=== PATIENT | male | born 1940 | race Two or more races ===

== ENCOUNTER 2021-07-15 23:12 | Inpatient (IN) | payer MEDICARE ==
[~2021-07-15] VITALS: Ht 165.1 cm; Wt 61.2 kg
[2021-07-16] MEDS ORDERED: MAGNESIUM HYDROXIDE 30 ML UDC PO PRN
[2021-07-16] MEDS ORDERED: BLOOD SUGAR DIAGNOSTIC 1 EACH STRIP IN ONE
[2021-07-16] MEDS ORDERED: MAG HYDROX/AL HYDROX/SIMETH 30 ML UDC PO PRN
--- NOTE | 2021-07-16 00:05 | NUR ---
GPS RN NOTE PATIENT'S BS IS 79 MG/DL UPON ADMISSION, ORANGE JUICE AND PUDDING OFFERED, TOLERATED WELL.
--- NOTE | 2021-07-16 00:20 | NUR ---
GPS RN NOTE PATIENT'S SON SURYA MCCORD CALLED AND INFORMED HIM ABOUT PATIENT'S ADMISSION AT [facility], [facility].
[2021-07-16] MEDS: LORAZEPAM 0.5 MG TABLET PO PRN ×2 (00:26→06:27)
--- NOTE | 2021-07-16 00:28 | NUR ---
GPS RN NOTE: ANXIETY/AGITATION PATIENT IS ANXIOUS, RESTLESS, AGITATED. UNABLE TO BE REDIRECTED. PRN ATIVAN 0.5 MG 1 TAB PO ADMINISTERED.
--- NOTE | 2021-07-16 00:30 | NUR ---
GPS RN NOTE DR. BATRES NOTIFIED ABOUT PATIENT'S ADMISSION AT GPS UNIT.
[2021-07-16] MEDS: ACETAMINOPHEN 325 MG TABLET PO PRN (00:46)
--- NOTE | 2021-07-16 00:46 | NUR ---
GPS RN NOTE: PAIN PATIENT C/O BACK PAIN BUT UNABLE TO SCALE DUE TO CONFUSION. PRN TYLENOL 650 MG PO ADMINISTERED. WILL CONTINUE TO MONITOR.
--- NOTE | 2021-07-16 01:00 | NUR ---
GPS FLAT SORTER PROCESSOR NOTE: RECEIVED 80 Y/O MALE PATIENT FROM [facility] / [facility]. PATIENT ARRIVED ON THIS UNIT AT 2350 VIA GURNEY WITH 2 EMT'S. PATIENT ADMITTED ON A 5150 HOLD FOR DTO, DTS AND GD. PER 5150 HOLD, PATIENT WAS DISORIENTED AND UNABLE TO ANSWER QUESTIONS. PATIENT'S NURSE MICKY FROM [facility] REPORTS THAT PATIENT WAS VERY AGITATED, HE BROKE A WINDOW WITH A CHAIR, NOT ABLE TO BE REDIRECTED. HE WAS ATTACKING THE STAFF AND THE OTHER RESIDENTS. PATIENT DX WITH DEMENTIA WITH PSYCHOSIS PRESCRIBED SEROQUEL, ATIVAN AND GABAPENTIN. UPON FACE TO FACE ASSESSMENT, PATIENT IS A & O X 1, CONFUSED, DISORIENTED, DISORGANIZED, EASILY AGITATED/AGGRESSIVE, ANXIOUS, RESTLESS, PARANOID, TALKING TO HIMSELF, NON REDIRECTABLE DUE TO CONFUSION. AMBULATORY, UNSTEADY GAIT, FALL RISK. PATIENT'S JUDGEMENT IS IMPAIRED AND HAS POOR IMPULSE CONTROL AND INSIGHT. NO S/S OF APPARENT DISTRESS NOTED. PATIENT BREATHING IS UNLABORED WITH EQUAL RISE AND FALL OF THE CHEST. ON ROOM AIR. PATIENT REFUSED TO SIGNS ANY PAPER WORK DUE TO HIS CONFUSION. PATIENT ADVISED OF HER HOLD AND PATIENT RIGHTS BOOKLET GIVEN. PATIENT IS UNDER THE PSYCHIATRIC CARE OF DR. BATRES AND THE MEDICAL CARE OF JOHN MCCLAIN. PATIENT BELONGINGS WERE INVENTORIED AND CHECKED FOR CONTRABAND. ALL CONTRABAND REMOVED AND STORED IN PATIENT HALLWAY LOCKER. PATIENT ADVANCED DIRECTIVES PREFERENCE, IMMUNIZATIONS QUESTIONER, NECESSARY PAPERWORK COMPLETED. PATIENT IS UNABLE TO PROVIDE ANY RELEVANT HISTORY DUE TO CURRENT MENTAL STATUS. SKIN ASSESSED AND PICTURES TAKEN. MRSA COLLECTED. PATIENT EDUCATED ON THE USE OF THE CALL LIGHT. PATIENT BED SIDE RAILS ARE UP X 2 FOR SAFETY. PATIENT'S BED IN LOW LOCKED POSITION. BED ALARM ON. I WILL CONTINUE TO MONITOR THIS PATIENT Q 15 MIN WITH THE HELP OF STAFF TO MAINTAIN SAFETY.
[2021-07-16] MEDS: TEMAZEPAM 7.5 MG CAPSULE PO PRN ×2 (01:53→21:26)
--- NOTE | 2021-07-16 01:54 | NUR ---
GPS RN NOTE: INSOMNIA PATIENT IS UNABLE TO SLEEP, ANXIOUS, RESTLESS, EASILY AGITATED, PRN RESTORIL 7.5 MG 1 CAP PO ADMINISTERED. WILL CONTINUE TO MONITOR CLOSELY FOR ANY CHANGE OF CONDITION.
[2021-07-16] MEDS ORDERED: GABA-532 PO (03:01)
[2021-07-16] MEDS ORDERED: ASPI-1169 PO (03:01)
[2021-07-16] MEDS ORDERED: ATOR20TA PO (03:01)
[2021-07-16] MEDS ORDERED: QUET50TA PO (03:01)
[2021-07-16] MEDS ORDERED: QUET25TA PO (03:01)
[2021-07-16] MEDS ORDERED: CYAN10006 PO (03:01)
[2021-07-16] MEDS ORDERED: LORA-259 PO (03:01)
[2021-07-16] MEDS ORDERED: CHOL400T11 PO (03:04)
--- NOTE | 2021-07-16 06:28 | NUR ---
GPS RN NOTE: ANXIETY/AGITATION PATIENT IS ANXIOUS, RESTLESS, AGITATED, STRIKING AT STAFF. UNABLE TO BE REDIRECTED. PRN ATIVAN 0.5 MG 1 TAB PO ADMINISTERED. WILL CONTINUE TO MONITOR.
[2021-07-16 06:34] LABS: BASOPHILS # (AUTO) 0.1 K/uL (0.0-0.2); BASOPHILS % (AUTO) 0.4 % (0.0-2.0); EOSINOPHILS % (AUTO) 0.3 % (0.0-6.0); HEMATOCRIT 41 % (39-51); HEMOGLOBIN 13.7 g/dL (13.5-17.5); LYMPHOCYTES # (AUTO) 0.9 K/uL (0.8-4.8); LYMPHOCYTES % (AUTO) 6.6 % (20.0-44.0); MEAN CORPUSCULAR HGB CONC 34 g/dl (31.0-36.0); MEAN CORPUSCULAR VOLUME 96 fL (80-96); MONOCYTES # (AUTO) 0.9 K/uL (0.1-1.30); MONOCYTES % (AUTO) 6.6 % (2.0-12.0); NEUTROPHILS % (AUTO) 86.1 % (43.0-81.0); PLATELET COUNT (AUTO) 231 K/uL (150-450); RED BLOOD CELL COUNT(AUTO) 4.26 MIL/uL (4.5-6.0); WHITE BLOOD COUNT (AUTO) 13.9 K/uL (4.3-11.0)
[2021-07-16 07:40] LABS: ALBUMIN 3.9 g/dL (3.4-5.0); BILIRUBIN,TOTAL 0.9 mg/dL (0.2-1.0); CALCIUM, SERUM 9.1 mg/dL (8.5-10.1); CREATININE 0.9 mg/dL (0.6-1.3); POTASSIUM 3.7 mmol/L (3.5-5.1)
[2021-07-16] MEDS ORDERED: CYAN100020 SL (09:15)
[2021-07-16] MEDS ORDERED: ERGO500040 PO (09:15)
[2021-07-16 09:39] VITALS: BP 150/73
[2021-07-16] MEDS: ASPIRIN 81 MG TAB.CHEW PO SCH (13:41)
[2021-07-16] MEDS: risperiDONE-M 0.5 MG TAB.RAPDIS PO SCH ×2 (13:41→17:14)
[2021-07-16] MEDS: GABAPENTIN 100 MG CAPSULE PO SCH ×2 (13:42→17:14)
[2021-07-16] MEDS: CYANOCOBALAMIN 500 MCG TABLET PO SCH (13:42)
--- NOTE | 2021-07-16 15:00 | NUR ---
FLORENCIO Family Contact: SW spoke with patient's son Rodrigo ([phone]) and discussed treatment and discharge plan.
--- NOTE | 2021-07-16 15:00 | NUR ---
FLORENCIO Initial Discharge Plan: Patient currently resides at [facility] located at [address] [place] [address]; ([phone]). Patient's son Rodrigo ([phone]) stated that he would want pt back to [facility]. FLORENCIO will work with the MD, treatment team, and family to help coordinate appropriate discharge.
--- NOTE | 2021-07-16 15:00 | NUR ---
SW Admit Note: Patient currently resides at [facility] located at [address] [place] [address], [place] [address]; ([phone]). Patient's son Rodrigo ([phone]) stated that he would want pt back to [facility]. FLORENCIO spoke with [facility] ([phone]) and spoke with Adriana the admin who stated that they cannot take pt back because of his history of being aggressive and not being able to provide the appropriate care. FLORENCIO will work with the MD, treatment team, and family to help coordinate appropriate discharge.
--- NOTE | 2021-07-16 15:13 | NUR ---
FLORENCIO Family Contact: FLORENCIO spoke with patient's son Rodrigo ([phone]) and notified that he will contact [facility] and discuss.
[2021-07-16 16:00] VITALS: BP 146/59
[2021-07-16 20:00] VITALS: BP 104/67
[2021-07-16] MEDS: ATORVASTATIN 10 MG TABLET PO SCH (21:26)
[2021-07-17] MEDS: LORAZEPAM 0.5 MG TABLET PO PRN ×2 (03:03→11:27)
[2021-07-17 08:00] VITALS: BP 124/76
--- NOTE | 2021-07-17 08:15 | NUR ---
WOUND CARE CONSULT: REVIEWED CHART, NURSING DOCUMENTATION AND PHOTO WHICH INDICATES SACRAL DEEP TISSUE INJURY, PRESENT ON ADMISSION. RECOMMENDATIONS MADE FOR SKIN PROTECTION AND WOUND CARE. DISCUSSED WITH NURSING STAFF. MD IN AGREEMENT WITH PLAN OF CARE.
[2021-07-17] MEDS: risperiDONE-M 0.5 MG TAB.RAPDIS PO SCH ×5 (09:00→21:38)
[2021-07-17] MEDS: GABAPENTIN 100 MG CAPSULE PO SCH ×3 (09:00→17:01)
[2021-07-17] MEDS: CYANOCOBALAMIN 500 MCG TABLET PO SCH (10:41)
[2021-07-17] MEDS: ASPIRIN 81 MG TAB.CHEW PO SCH (10:41)
--- NOTE | 2021-07-17 11:00 | NUR ---
RN NOTES, PATIENT TRYING TO GET UP FROM BED, AGAIN SEVERAL TIMES, SIT PATIENT ON RAPHAEL CHAIR AGAIN CONTINUOUS MONITORING PROVIDED, SAFETY MAINTAINED, UNABLE TO FOLLOW DIRECTIONS, UNCOOPERATIVE, AGGRESSIVE BEHAVIOR IF WE PUT HIM BACK TO BED, WILL MONITORING CLOSELY.
--- NOTE | 2021-07-17 11:40 | NUR ---
SITTING UP IN RM.ON ISOLATION FOR COVID.YELLING.GIVEN ATIVAN 0.5MG FOR BEHAVIOR.
[2021-07-17] MEDS: ENSURE ENLIVE CHOC 237 ML CAN PO SCH ×2 (11:44→17:01)
[2021-07-17 14:08] LABS: ALBUMIN 3.9 g/dL (3.4-5.0); BILIRUBIN,TOTAL 1.6 mg/dL (0.2-1.0); CALCIUM, SERUM 9.2 mg/dL (8.5-10.1); CREATININE 0.9 mg/dL (0.6-1.3); POTASSIUM 3.7 mmol/L (3.5-5.1); TOTAL PROTEIN, SERUM 6.9 g/dL (6.4-8.2)
[2021-07-17 14:28] LABS: BASOPHILS % (AUTO) 0.3 % (0.0-2.0); EOSINOPHILS % (AUTO) 0.6 % (0.0-6.0); HEMATOCRIT 42 % (39-51); HEMOGLOBIN 13.9 g/dL (13.5-17.5); LYMPHOCYTES # (AUTO) 1.1 K/uL (0.8-4.8); LYMPHOCYTES % (AUTO) 13.1 % (20.0-44.0); MEAN CORPUSCULAR HGB CONC 34 g/dl (31.0-36.0); MEAN CORPUSCULAR VOLUME 96 fL (80-96); MONOCYTES # (AUTO) 0.8 K/uL (0.1-1.30); MONOCYTES % (AUTO) 8.9 % (2.0-12.0); NEUTROPHILS # (AUTO) 6.5 K/uL (1.8-8.9); NEUTROPHILS % (AUTO) 77.1 % (43.0-81.0); PLATELET COUNT (AUTO) 232 K/uL (150-450); RED BLOOD CELL COUNT(AUTO) 4.32 MIL/uL (4.5-6.0); WHITE BLOOD COUNT (AUTO) 8.5 K/uL (4.3-11.0)
--- NOTE | 2021-07-17 14:28 | NUR ---
very sleepy at this time,afternoon meds held.
[2021-07-17 16:00] VITALS: BP 134/91
--- NOTE | 2021-07-17 19:40 | NUR ---
PATIENT IN BED AWAKE, ALERT AND ORIENTED TO SELF, AT ROOM AIR, NO SOB/ACUTE DISTRESS NOTED, NO C/O PAIN OR DISCOMFORT, ON ISOLATION FOR COVID 19, ALL ISOLATION PRECAUTIONS IN PLACE, SAFETY PRECAUTIONS MAINTAINED AT ALL TIME, KEPT PATIENT DRY AND CLEAN, WILL CONTINUE TO MONITOR Q15MIN ROUNDS FOR SAFETY AND BEHAVIOR, NO DISRUPTIVE BEHAVIOR NOTED AT TIS TIME
[2021-07-17 20:00] VITALS: BP 104/62
--- NOTE | 2021-07-17 20:00 | NUR ---
PATIENT IN BED AWAKE, ALERT AND ORIENTED X1-2 , AT ROOM AIR, NO SOB/ACUTE DISTRESS NOTED, NO C/O PAIN OR DISCOMFORT, ON ISOLATION FOR COVID 19, ALL ISOLATION PRECAUTIONS IN PLACE, PT REPEATEDLY GETTING UP FROM BED, REMINDED HIM SEVERAL TIMES TO STAY IN BED, PATIENT REFUSED AND UNCOOPERATIVE, EASILY AGITATED, UNABLE TO FOLLOW DIRECTIONS, PLACED HIM IN RAPHAEL CHAIR, PATIENT UNCOOPERATIVE AT THIS TIME, BED BATH GIVEN TO PT, PERIOCARE PROVIDED, AND NOTICED DISCOLORATIONS ON BILATERAL LOWER ABDOMEN, AND REDNESS IN PERINEAL AREA, TOOK PICTURES AND PLACED IN CHART, ALL SAFETY PRECAUTIONS MAINTAINED AT ALL TIME, KEPT PATIENT DRY AND CLEAN, SNACK AND HYDRATION PROVIDED, WILL CONTINUE TO MONITOR Q15MIN ROUNDS FOR SAFETY AND BEHAVIOR,
[2021-07-17] MEDS: GABAPENTIN 300 MG CAPSULE PO SCH (21:39)
[2021-07-17] MEDS: ATORVASTATIN 10 MG TABLET PO SCH (21:39)
--- NOTE | 2021-07-17 22:00 | NUR ---
PLACED PATIENT ON BED, NOTICED HIM SLEEPY, CLEANED PATIENT, PROVIDED YEIMI CARE AND CHANGED DIAPER, KEPT HIM COMFORTABLY, WILL CONTINUE TO MONITOR CLOSELY.
--- NOTE | 2021-07-17 22:30 | NUR ---
RN NOTES, PATIENT TRYING TO GET UP FROM BED, REMINDED HIM TO STAY IN BED, UNABLE TO FOLLOW DIRECTIONS, WILL CONTINUE TO MONITOR CLOSELY.
[2021-07-18] MEDS: TEMAZEPAM 7.5 MG CAPSULE PO PRN (00:27)
--- NOTE | 2021-07-18 01:00 | NUR ---
MARY NOTES, MEDICATION INEFFECTIVE TO SLEEP, PATIENT TRYING TO GET UP FROM BED, UNABLE TO FOLLOW DIRECTIONS, DESPITE SEVERAL REMINDERS, PT CONT TRYING TO GET UP FROM BED, SIT PT IN RAPHAEL CHAIR CONT MONITORING PROVIDED.
--- NOTE | 2021-07-18 01:40 | NUR ---
PATIENT NOTED SLEEPY, PLACED HIM BACK TO BED, WILL CONTINUE TO MONITOR CLOSELY.
--- NOTE | 2021-07-18 06:00 | NUR ---
RN NOTES, PATIENT ATTEMPTING TO GET UP FROM BED AGAIN, PLACED PATIENT ON HANK-CHAIR, NO SOB/ACUTE DISTRESS NOTED, WITH FEW HOURS SLEEPING, CONT ON ISOLATION FOR COVID 19, ALL SAFETY PRECAUTIONS IN PLACED, WILL ENDORSE CONTINUATION OF CARE TO ONCOMING NURSE.
[2021-07-18 06:46] LABS: BASOPHILS % (AUTO) 0.4 % (0.0-2.0); EOSINOPHILS % (AUTO) 0.6 % (0.0-6.0); HEMATOCRIT 43 % (39-51); HEMOGLOBIN 14.3 g/dL (13.5-17.5); LYMPHOCYTES # (AUTO) 1.3 K/uL (0.8-4.8); LYMPHOCYTES % (AUTO) 14.8 % (20.0-44.0); MEAN CORPUSCULAR HGB CONC 34 g/dl (31.0-36.0); MEAN CORPUSCULAR VOLUME 96 fL (80-96); MONOCYTES # (AUTO) 0.7 K/uL (0.1-1.30); MONOCYTES % (AUTO) 8.5 % (2.0-12.0); NEUTROPHILS # (AUTO) 6.5 K/uL (1.8-8.9); NEUTROPHILS % (AUTO) 75.7 % (43.0-81.0); PLATELET COUNT (AUTO) 222 K/uL (150-450); RED BLOOD CELL COUNT(AUTO) 4.42 MIL/uL (4.5-6.0); WHITE BLOOD COUNT (AUTO) 8.6 K/uL (4.3-11.0)
[2021-07-18 08:00] VITALS: BP 148/74
[2021-07-18] MEDS: GABAPENTIN 100 MG CAPSULE PO SCH ×3 (08:03→18:18)
[2021-07-18] MEDS: risperiDONE-M 0.5 MG TAB.RAPDIS PO SCH ×4 (08:03→21:38)
[2021-07-18] MEDS: CYANOCOBALAMIN 500 MCG TABLET PO SCH (08:04)
[2021-07-18] MEDS: ASPIRIN 81 MG TAB.CHEW PO SCH (08:04)
[2021-07-18] MEDS: ENSURE ENLIVE CHOC 237 ML CAN PO SCH ×2 (08:16→18:14)
--- NOTE | 2021-07-18 10:05 | NUR ---
GIVEN ATIVAN VERY AGITATED AT THIS TIME.
--- NOTE | 2021-07-18 10:15 | NUR ---
WOUND CARE CONSULT: REVIEWED CHART, NURSING DOCUMENTATION AND PHOTOS WHICH INDICATES DISCOLORED AREAS TO ABDOMEN. PER NURSING DOCUMENTATION, PT WAS PREVIOUSLY AGITATED AND UNCOOPERATIVE. NURSING STAFF TO MONITOR SKIN WHICH IS INTACT WITH DEEP TISSUE INJURY (INTACT) NOTED IN ADMISSION PHOTO. ALL SKIN PROTECTION MEASURES IN PLACE AND DISCUSSED WITH NURSING STAFF. MD IN AGREEMENT WITH PLAN OF CARE.
[2021-07-18] MEDS: LORAZEPAM 0.5 MG TABLET PO PRN (11:10)
--- NOTE | 2021-07-18 11:12 | NUR ---
SW Family Contact: SW spoke with patient's son Kike ([phone]) who stated that family has been in contact with [facility] and they stated they will evaluate pt upon dc if they will accept him back or not. He stated that as a back up he is open for this SW to find a nursing facility.
--- NOTE | 2021-07-18 12:33 | NUR ---
SNF Referral: FLORENCIO sent clinicals to Winsome herrera from [facility] ([phone]) for placement option. SW sent H & P, progress notes, and medication list.
--- NOTE | 2021-07-18 13:43 | NUR ---
SNF Contact: SW spoke with Winsome herrera from [facility] ([phone]) who stated pt is accepted.
[2021-07-18] MEDS: ERGOCALCIFEROL (VITAMIN D 2) 50,000 UNIT CAPSULE PO SCH (14:48)
[2021-07-18 16:00] VITALS: BP 119/67
--- NOTE | 2021-07-18 18:00 | NUR ---
med compliant,less agitated than yesterday.
[2021-07-18 20:00] VITALS: BP 155/66
[2021-07-18] MEDS: ATORVASTATIN 10 MG TABLET PO SCH (21:37)
[2021-07-18] MEDS: GABAPENTIN 300 MG CAPSULE PO SCH (21:37)
[2021-07-19] MEDS: ACETAMINOPHEN 325 MG TABLET PO PRN (02:59)
[2021-07-19 08:00] VITALS: BP 113/69
[2021-07-19] MEDS: ASPIRIN 81 MG TAB.CHEW PO SCH (10:43)
[2021-07-19] MEDS: GABAPENTIN 100 MG CAPSULE PO SCH ×2 (10:44→18:18)
[2021-07-19] MEDS: risperiDONE-M 0.5 MG TAB.RAPDIS PO SCH ×4 (10:44→21:11)
[2021-07-19] MEDS: CYANOCOBALAMIN 500 MCG TABLET PO SCH (10:44)
[2021-07-19] MEDS: ENSURE ENLIVE CHOC 237 ML CAN PO SCH ×2 (10:45→18:19)
[2021-07-19] MEDS: LORAZEPAM 0.5 MG TABLET PO PRN (15:57)
--- NOTE | 2021-07-19 15:58 | NUR ---
RN NOTES ADMINISTERED ATIVAN 0.6 MG PO PRN FOR ANXIETY,PARANOIA. PATIENT UNDRESS SELF, SITTING IN THE HANK CHAIR. WILL FOLLOW UP, V/S-WNL. WILL FOLLOW UP.
[2021-07-19 16:00] VITALS: BP 139/76
[2021-07-19] MEDS: GABAPENTIN 300 MG CAPSULE PO SCH ×2 (18:17→21:27)
[2021-07-19 20:00] VITALS: BP 144/76
[2021-07-19] MEDS: TEMAZEPAM 7.5 MG CAPSULE PO PRN (21:11)
[2021-07-19] MEDS: ATORVASTATIN 10 MG TABLET PO SCH (21:11)
[2021-07-20 07:37] LABS: BASOPHILS % (AUTO) 0.4 % (0.0-2.0); EOSINOPHILS % (AUTO) 1.4 % (0.0-6.0); HEMATOCRIT 44 % (39-51); HEMOGLOBIN 14.6 g/dL (13.5-17.5); LYMPHOCYTES # (AUTO) 1.2 K/uL (0.8-4.8); LYMPHOCYTES % (AUTO) 12.8 % (20.0-44.0); MEAN CORPUSCULAR HGB CONC 34 g/dl (31.0-36.0); MEAN CORPUSCULAR VOLUME 96 fL (80-96); MONOCYTES # (AUTO) 0.7 K/uL (0.1-1.30); MONOCYTES % (AUTO) 7.9 % (2.0-12.0); NEUTROPHILS # (AUTO) 7.2 K/uL (1.8-8.9); NEUTROPHILS % (AUTO) 77.5 % (43.0-81.0); RED BLOOD CELL COUNT(AUTO) 4.54 MIL/uL (4.5-6.0); WHITE BLOOD COUNT (AUTO) 9.3 K/uL (4.3-11.0)
[2021-07-20 08:00] VITALS: BP 137/71
[2021-07-20] MEDS: ENSURE ENLIVE CHOC 237 ML CAN PO SCH ×2 (08:19→17:53)
[2021-07-20] MEDS: GABAPENTIN 100 MG CAPSULE PO SCH ×3 (08:20→17:54)
[2021-07-20] MEDS: ASPIRIN 81 MG TAB.CHEW PO SCH (08:20)
[2021-07-20] MEDS: risperiDONE-M 0.5 MG TAB.RAPDIS PO SCH ×4 (08:20→21:53)
[2021-07-20] MEDS: CYANOCOBALAMIN 500 MCG TABLET PO SCH (08:20)
[2021-07-20 09:33] LABS: ALBUMIN 3.9 g/dL (3.4-5.0); BILIRUBIN,TOTAL 1.3 mg/dL (0.2-1.0); CALCIUM, SERUM 9.4 mg/dL (8.5-10.1); CREATININE 0.8 mg/dL (0.6-1.3)
--- NOTE | 2021-07-20 10:38 | NUR ---
PC HEARING: Kike ([phone]) son was notified of pt's 5800 hearing today.
--- NOTE | 2021-07-20 10:53 | NUR ---
Covid 19 is negative at this time and Dr. Henrandez made aware and d/c the isolation.
--- NOTE | 2021-07-20 11:35 | NUR ---
SW Individual Therapy: SW attempted to conduct therapy. Pt was confused and disorganized. Pt unable to have a proper conversation at this time.
--- NOTE | 2021-07-20 13:55 | NUR ---
Court Hearing: Patient's court hearing for 2240 was today and it was upheld for GD and danger to others.
[2021-07-20 14:08] LABS: PLATELET COUNT (AUTO) 184 K/uL (150-450)
[2021-07-20 16:00] VITALS: BP 116/70
--- NOTE | 2021-07-20 19:10 | NUR ---
RN NOTES: UPON ENDORSEMENT HE WAS SITTING ON THE CHAIR, SHOUTING IN BETWEEN AND CALLING EVERYBODY WHO PASS BY,ORIENTED TO UNIT AND STAFF.FALL AND SAFETY PRECAUTION OBSERVED,CONTINUE TO MONITOR FOR ANY BEHAVIORAL CHANGE. -AROUND 1954 HE IS MORE RELAX AND QUITE.
[2021-07-20 20:00] VITALS: BP 115/66
[2021-07-20 20:14] VITALS: BP 115/66
[2021-07-20] MEDS: ATORVASTATIN 10 MG TABLET PO SCH (21:53)
[2021-07-20] MEDS: GABAPENTIN 300 MG CAPSULE PO SCH (21:53)
--- NOTE | 2021-07-20 21:54 | NUR ---
RN NOTES: PATIENT SLEEPING IN BETWEENM HE TOOK ALL HIS ORAL MEDICATION, COOPERATIVE.
[2021-07-20] MEDS: TEMAZEPAM 7.5 MG CAPSULE PO PRN (23:03)
--- NOTE | 2021-07-20 23:04 | NUR ---
RN NOTES: AWAKE AND TRYING TO MAKE SOME NOISE, WHEN RN APPROACH HIM, HE SAID "I WANT YOU TO REMOVE THIS I WANT TO SLEEP", PRN MEDS FOR SLEEP GIVEN.
[2021-07-21] MEDS: TEMAZEPAM 7.5 MG CAPSULE PO PRN ×2 (00:07→22:21)
--- NOTE | 2021-07-21 00:08 | NUR ---
RN NOTES: CLOSE HIS EYES AND TAKING A REST.ON CLOSE WATCH.
--- NOTE | 2021-07-21 00:35 | NUR ---
RN NOTES: -FEW MINUTES NAP ONLY, AWAKE AGAIN, TALKING TO HIMSELF, WHISPERING; UNORGANIZED THOUGHTS, CANNOT BE UNDERSTAND. ON CLOSE WATCH.
--- NOTE | 2021-07-21 03:50 | NUR ---
RN NOTES: YELLING AND SHOUTING THE NAME OF "MARGIE", WHILE TRYING TO REMOVE THE TABLE IN THE EMEKA-CHAIR. Addendum: 07/21/21 at 06 by JEFFERY ARENAS RN ADDED NOTES: -AT 0600 AWAKE MOST OF THE TIME, ASSISTED TO THE BATHROOM TO PEE, SKIN TREATMENT RENDERED, BRIEF CHANGE.
[2021-07-21 08:00] VITALS: BP 113/76
[2021-07-21] MEDS: ENSURE ENLIVE CHOC 237 ML CAN PO SCH ×2 (08:26→16:29)
[2021-07-21] MEDS: ASPIRIN 81 MG TAB.CHEW PO SCH (08:27)
[2021-07-21] MEDS: risperiDONE-M 0.5 MG TAB.RAPDIS PO SCH ×4 (08:27→22:20)
[2021-07-21] MEDS: CYANOCOBALAMIN 500 MCG TABLET PO SCH (08:28)
[2021-07-21] MEDS: GABAPENTIN 100 MG CAPSULE PO SCH ×3 (08:28→16:30)
[2021-07-21 16:00] VITALS: BP 114/70
--- NOTE | 2021-07-21 19:30 | NUR ---
GPS RN NOTE, RECEIVED PATIENT AWAKE AND IN BED, NO S/S OR COMPLAINTS OF PAIN AT THIS TIME. PATIENT IS DISPLAYING NO S/S OF APPARENT DISTRESS AT THIS TIME. PATIENT BREATHING IS UNLABORED WITH EQUAL RISE AND FALL OF THE CHEST. PATIENT IS ALERT AND ORIENTED X 1-2 ON ROOM AIR WITH A SPO2 99%. PATIENT IS COMPLIANT WITH MEDICATIONS, ANXIOUS, POLITE, PARANOID, UNCOOPERATIVE, AND NEEDS REDIRECTION. PATIENT DENIES SUICIDAL AND HOMICIDAL IDEATIONS AT THIS TIME. PATIENT ASSISTED WITH TURNING AND REPOSITIONING Q2HR AND PRN FOR COMFORT AND CIRCULATION. PATIENT HAS NO NEEDS AT THIS TIME. PATIENT EDUCATED ON THE USE OF THE CALL DIANE. PATIENT BED SIDE RAILS UP X 2 FOR SAFETY. PATIENT BED IS LOCKED, LOW, WITH BED ALARM ON. WILL CONTINUE TO MONITOR THIS PATIENT Q15 MINUTES WITH THE HELP OF STAFF TO MAINTAIN SAFETY.
[2021-07-21 19:53] VITALS: BP 111/70
[2021-07-21] MEDS: GABAPENTIN 300 MG CAPSULE PO SCH (22:20)
[2021-07-21] MEDS: ATORVASTATIN 10 MG TABLET PO SCH (22:20)
--- NOTE | 2021-07-21 22:21 | NUR ---
GPS RN NOTE, PATIENT HAS A COMPLAINT OF NOT BEING ABLE TO SLEEP AND IS REQUESTING RESTORIL AT THIS TIME. PATIENT VITAL SIGNS ARE STABLE. GAVE RESTORIL 7.5MG PO HS PRN ORDERED. WILL REASSESS FOR INSOMNIA AND I WILL CONTINUE TO MONITOR THIS PATIENT WITH THE HELP OF STAFF.
[2021-07-22 08:00] VITALS: BP 104/69
[2021-07-22] MEDS: ENSURE ENLIVE CHOC 237 ML CAN PO SCH ×2 (08:35→17:08)
[2021-07-22] MEDS: risperiDONE-M 0.5 MG TAB.RAPDIS PO SCH ×4 (08:37→21:55)
[2021-07-22] MEDS: ASPIRIN 81 MG TAB.CHEW PO SCH (08:37)
[2021-07-22] MEDS: CYANOCOBALAMIN 500 MCG TABLET PO SCH (08:37)
[2021-07-22] MEDS: GABAPENTIN 100 MG CAPSULE PO SCH ×3 (08:38→17:10)
[2021-07-22] MEDS: LORAZEPAM 0.5 MG TABLET PO PRN (14:35)
[2021-07-22 16:00] VITALS: BP 103/64
[2021-07-22 20:00] VITALS: BP 105/42
[2021-07-22] MEDS: ACETAMINOPHEN 325 MG TABLET PO PRN (20:58)
--- NOTE | 2021-07-22 20:58 | NUR ---
GPS RN NOTE: PAIN PATIENT C/O BACK PAIN BUT UNABLE TO SCALE DUE TO CONFUSION. PRN TYLENOL 650 MG PO ADMINISTERED. WILL CONTINUE TO MONITOR.
[2021-07-22] MEDS: GABAPENTIN 300 MG CAPSULE PO SCH (21:36)
[2021-07-22] MEDS: ATORVASTATIN 10 MG TABLET PO SCH (21:36)
[2021-07-22] MEDS: TEMAZEPAM 7.5 MG CAPSULE PO PRN (23:44)
--- NOTE | 2021-07-22 23:45 | NUR ---
GPS RN NOTE: INSOMNIA PATIENT VERBALIZED THAT HE UNABLE TO SLEEP, NOTED TO BE ANXIOUS, RESTLESS, EASILY AGITATED, PRN RESTORIL 7.5 MG 1 CAP PO ADMINISTERED. WILL CONTINUE TO MONITOR CLOSELY FOR ANY CHANGE OF CONDITION.
[2021-07-23 08:00] VITALS: BP 108/57
[2021-07-23] MEDS: ENSURE ENLIVE CHOC 237 ML CAN PO SCH ×2 (08:31→16:08)
[2021-07-23] MEDS: Z GUARD REMEDY 4 OZ OINT TP SCH (09:22)
[2021-07-23] MEDS: CYANOCOBALAMIN 500 MCG TABLET PO SCH (09:25)
[2021-07-23] MEDS: GABAPENTIN 100 MG CAPSULE PO SCH ×3 (09:25→16:34)
[2021-07-23] MEDS: risperiDONE-M 0.5 MG TAB.RAPDIS PO SCH ×4 (09:25→21:40)
[2021-07-23] MEDS: ASPIRIN 81 MG TAB.CHEW PO SCH (09:25)
--- NOTE | 2021-07-23 15:43 | NUR ---
SW Individual Therapy: SW met with patient at bedside for individual therapy regarding positive coping mechanisms. However, pt. is confused, disorganized and unable to engage in a meaningful conversation. SW will continue to asses patient's ability to engage in therapy.
[2021-07-23 16:00] VITALS: BP 135/73
--- NOTE | 2021-07-23 17:30 | NUR ---
Z-GUARD AND MEPILEX PAD APPLIED TO SACRAL AREA
[2021-07-23 19:50] VITALS: BP 121/62
[2021-07-23] MEDS: ACETAMINOPHEN 325 MG TABLET PO PRN (20:15)
--- NOTE | 2021-07-23 20:16 | NUR ---
GPS RN NOTE: PAIN PATIENT C/O RIGHT ARM PAIN PAIN BUT UNABLE TO SCALE DUE TO CONFUSION. PRN TYLENOL 650 MG PO ADMINISTERED. WILL CONTINUE TO MONITOR.
[2021-07-23] MEDS: GABAPENTIN 300 MG CAPSULE PO SCH (21:40)
[2021-07-23] MEDS: ATORVASTATIN 10 MG TABLET PO SCH (21:40)
[2021-07-23] MEDS: TEMAZEPAM 7.5 MG CAPSULE PO PRN (22:52)
--- NOTE | 2021-07-23 22:53 | NUR ---
GPS RN NOTE: INSOMNIA PATIENT IS UNABLE TO SLEEP, NOTED TO BE ANXIOUS, RESTLESS, EASILY AGITATED, PRN RESTORIL 7.5 MG 1 CAP PO ADMINISTERED. WILL CONTINUE TO MONITOR CLOSELY FOR ANY CHANGE OF CONDITION.
[2021-07-24] MEDS: LORAZEPAM 0.5 MG TABLET PO PRN ×2 (05:38→19:59)
--- NOTE | 2021-07-24 05:40 | NUR ---
GPS RN NOTE: ANXIETY PATIENT IS ANXIOUS, RESTLESS. UNABLE TO BE REDIRECTED. PRN ATIVAN 0.5 MG 1 TAB PO ADMINISTERED. WILL CONTINUE TO MONITOR.
[2021-07-24 08:00] VITALS: BP 125/68
[2021-07-24 08:08] LABS: CALCIUM, SERUM 9.1 mg/dL (8.5-10.1); CREATININE 0.9 mg/dL (0.6-1.3); POTASSIUM 3.9 mmol/L (3.5-5.1)
[2021-07-24] MEDS: ASPIRIN 81 MG TAB.CHEW PO SCH (09:19)
[2021-07-24] MEDS: CYANOCOBALAMIN 500 MCG TABLET PO SCH (09:19)
[2021-07-24] MEDS: ENSURE ENLIVE CHOC 237 ML CAN PO SCH ×2 (09:19→17:00)
[2021-07-24] MEDS: risperiDONE-M 0.5 MG TAB.RAPDIS PO SCH ×4 (09:19→21:59)
[2021-07-24] MEDS: Z GUARD REMEDY 4 OZ OINT TP SCH (09:20)
[2021-07-24] MEDS: GABAPENTIN 100 MG CAPSULE PO SCH ×3 (09:20→18:10)
--- NOTE | 2021-07-24 10:35 | NUR ---
WOUND CARE CONSULT: PT SEEN FOR SACRAL DEEP TISSUE INJURY IN EVOLUTION (WAS NOTED TO BE PRESENT ON ADMISSION INTACT DTI) WHICH EXTENDS TO RT BUTTOCK. THERE IS A RASH/SKIN CONDITION TO LOWER LEGS WITHOUT DRAINAGE OR ERYTHEMA. DPM CONSULT REQUESTED FROM DR BUTLER. RECOMMENDATIONS MADE FOR SACRAL WOUND AND SKIN PROTECTION. DISCUSSED WITH NURSING STAFF. IN AGREEMENT WITH PLAN OF CARE. PT IS AMBULATORY AND CONTINENT AT THIS TIME. Addendum: 07/24/21 at 1037 by HARRIET PASCAL WNDNU Amended: Links added.
--- NOTE | 2021-07-24 10:47 | NUR ---
ARIADNA CONTACT: FLORENCIO contacted Adriana from admin ([phone]) (F:[phone]) and sent clinicals for review. She stated she will either assess pt on 07/25 or 07/26. She reported that she will discuss with her treatment team and notify this SW.
--- NOTE | 2021-07-24 15:20 | NUR ---
MED COMPLIANT,COOPERATIVE.CONFUSED.
[2021-07-24 16:00] VITALS: BP 132/63
[2021-07-24] MEDS ORDERED: MINERAL OIL/PETROLATUM,WHITE 120 GM JAR TP PRN (16:30)
[2021-07-24] MEDS: CLOTRIMAZOLE 1% 15 GM TUBE TP SCH (18:55)
[2021-07-24] MEDS: Z GUARD REMEDY 4 OZ OINT TP PRN (19:41)
--- NOTE | 2021-07-24 19:45 | NUR ---
GPS RN NOTE: ARTERIAL DOPPLER STUDY OF LOWER EXTREMITY WAS DONE, RESULTS PENDING.
[2021-07-24 20:00] VITALS: BP 103/72
--- NOTE | 2021-07-24 20:02 | NUR ---
GPS RN NOTE: ANXIETY PATIENT IS VERY ANXIOUS, RESTLESS, HYPERVERBAL, NON REDIRECTABLE. PRN ATIVAN 0.5 MG 1 TAB PO ADMINISTERED. WILL CONTINUE TO MONITOR.
[2021-07-24 20:30] VITALS: BP 103/72
[2021-07-24] MEDS: GABAPENTIN 300 MG CAPSULE PO SCH (21:59)
[2021-07-24] MEDS: ATORVASTATIN 10 MG TABLET PO SCH (21:59)
[2021-07-24] MEDS: TEMAZEPAM 7.5 MG CAPSULE PO PRN (22:45)
--- NOTE | 2021-07-25 05:35 | NUR ---
ARTERIAL DOPPLER STUDY RESULTS ARE STILL PENDING. WILL ENDORSE TO AM RN TO FOLLOW UP.
[2021-07-25 08:00] VITALS: BP 107/70
[2021-07-25] MEDS: ENSURE ENLIVE CHOC 237 ML CAN PO SCH ×2 (08:00→17:08)
[2021-07-25] MEDS: ASPIRIN 81 MG TAB.CHEW PO SCH (09:44)
[2021-07-25] MEDS: GABAPENTIN 100 MG CAPSULE PO SCH ×3 (09:44→17:07)
[2021-07-25] MEDS: CYANOCOBALAMIN 500 MCG TABLET PO SCH (09:45)
[2021-07-25] MEDS: risperiDONE-M 0.5 MG TAB.RAPDIS PO SCH ×4 (09:45→21:51)
[2021-07-25] MEDS: Z GUARD REMEDY 4 OZ OINT TP SCH (09:47)
[2021-07-25] MEDS: CLOTRIMAZOLE 1% 15 GM TUBE TP SCH ×2 (09:47→17:00)
[2021-07-25] MEDS: ERGOCALCIFEROL (VITAMIN D 2) 50,000 UNIT CAPSULE PO SCH (12:37)
--- NOTE | 2021-07-25 14:28 | NUR ---
ARIADNA CONTACT: Oralia from [facility] ([phone]) came to evaluate pt and stated that pt will be needing a higher level of care at this time.
--- NOTE | 2021-07-25 14:28 | NUR ---
FLORENCIO Family Contact: SW contacted patient's son Kike ([phone]) and left a detailed voicemail that [facility] came to evaluate pt and stated that he would need a higher level of care such as a Nursing facility. FLORENCIO stated that [facility] denied and pt accepted at [facility] (which son is aware of).
--- NOTE | 2021-07-25 15:03 | NUR ---
FLORENCIO Family Contact: FLORENCIO spoke with patient's son Kike ([phone]) and is agreeable with pt going to [facility].
[2021-07-25 16:00] VITALS: BP 109/56
[2021-07-25] MEDS: ACETAMINOPHEN 325 MG TABLET PO PRN (17:07)
[2021-07-25 20:09] VITALS: BP 118/68
[2021-07-25] MEDS: GABAPENTIN 300 MG CAPSULE PO SCH (21:50)
[2021-07-25] MEDS: ATORVASTATIN 10 MG TABLET PO SCH (21:50)
[2021-07-25] MEDS: TEMAZEPAM 7.5 MG CAPSULE PO PRN (21:51)
[2021-07-26 08:00] VITALS: BP 122/69
[2021-07-26] MEDS: GABAPENTIN 100 MG CAPSULE PO SCH ×3 (08:28→16:18)
[2021-07-26] MEDS: ENSURE ENLIVE CHOC 237 ML CAN PO SCH ×2 (08:28→17:30)
[2021-07-26] MEDS: ASPIRIN 81 MG TAB.CHEW PO SCH (08:29)
[2021-07-26] MEDS: CYANOCOBALAMIN 500 MCG TABLET PO SCH (08:29)
[2021-07-26] MEDS: risperiDONE-M 0.5 MG TAB.RAPDIS PO SCH ×2 (08:29→12:38)
[2021-07-26] MEDS: Z GUARD REMEDY 4 OZ OINT TP SCH (09:31)
[2021-07-26] MEDS: CLOTRIMAZOLE 1% 15 GM TUBE TP SCH ×2 (09:32→16:54)
[2021-07-26 16:00] VITALS: BP 100/60
[2021-07-26] MEDS: LORAZEPAM 0.5 MG TABLET PO PRN ×2 (16:19→22:57)
[2021-07-26] MEDS: risperiDONE 0.25 MG TABLET PO SCH (16:19)
[2021-07-26] MEDS ORDERED: GABAPENTIN 100 MG CAPSULE PO SCH (17:00)
[2021-07-26 20:00] VITALS: BP 143/76
[2021-07-26] MEDS: ATORVASTATIN 10 MG TABLET PO SCH (21:18)
[2021-07-26] MEDS: GABAPENTIN 300 MG CAPSULE PO SCH (21:19)
[2021-07-26] MEDS: TEMAZEPAM 7.5 MG CAPSULE PO PRN (21:43)
--- NOTE | 2021-07-26 21:44 | NUR ---
GPS RN NOTES: RESTORIL 7.5MG ADMINISTERED PO AT 2143 D/O INSOMNIA. WILL CONTINUE TO MONITOR.
[2021-07-26] MEDS ORDERED: GABAPENTIN 300 MG CAPSULE PO SCH (22:00)
[2021-07-26] MEDS ORDERED: risperiDONE-M 0.5 MG TAB.RAPDIS PO SCH (22:00)
--- NOTE | 2021-07-27 06:55 | NUR ---
GPS RN CLOSING NOTES: PATIENT IS AWAKE, A/O1. PATIENT SLEPT 4HR THIS SHIFT. NO S/S OF DISTRESS NOTED. RESPIRATION EVEN AND UNLABORED WITH EQUAL RISE AND FALL OF THE CHEST, ON ROOM AIR. ALL PATIENT CARE NEEDS HAVE BEEN MET ANTICIPATED. WILL CONTINUE TO MONITOR AND ENDORSE TO AM SHIFT TO FOLLOW UP.
[2021-07-27 08:00] VITALS: BP 112/70
[2021-07-27] MEDS: risperiDONE 0.25 MG TABLET PO SCH ×2 (08:40→12:22)
[2021-07-27] MEDS: CYANOCOBALAMIN 500 MCG TABLET PO SCH (08:40)
[2021-07-27] MEDS: GABAPENTIN 100 MG CAPSULE PO SCH ×3 (08:40→17:29)
[2021-07-27] MEDS: ASPIRIN 81 MG TAB.CHEW PO SCH (08:40)
[2021-07-27] MEDS: ENSURE ENLIVE CHOC 237 ML CAN PO SCH ×2 (08:41→17:29)
[2021-07-27] MEDS: CLOTRIMAZOLE 1% 15 GM TUBE TP SCH ×2 (09:21→17:38)
[2021-07-27] MEDS: Z GUARD REMEDY 4 OZ OINT TP SCH (09:21)
[2021-07-27 16:00] VITALS: BP 112/66
[2021-07-27 20:04] VITALS: BP 124/64
[2021-07-27] MEDS: LORAZEPAM 0.5 MG TABLET PO PRN (20:23)
[2021-07-27] MEDS: ACETAMINOPHEN 325 MG TABLET PO PRN (20:23)
--- NOTE | 2021-07-27 20:25 | NUR ---
GPS RN NOTES: PATIENT IS RESTLESS, ANXIOUS, YELLING. ATIVAN 0.5MG GIVEN PO AT 2022. TYLENOL 650MG GIVEN FOR LOWER BACK PAIN. WILL CONTINUE TO MONITOR.
[2021-07-27] MEDS: ATORVASTATIN 10 MG TABLET PO SCH (21:20)
[2021-07-27] MEDS: risperiDONE-M 0.5 MG TAB.RAPDIS PO SCH (21:21)
[2021-07-27] MEDS: GABAPENTIN 300 MG CAPSULE PO SCH (21:21)
--- NOTE | 2021-07-27 21:28 | NUR ---
GPS RN NOTES: RISPERDAL 0.25MG PARTIAL DOSE WASTED PER MD ORDER.
[2021-07-27] MEDS: TEMAZEPAM 7.5 MG CAPSULE PO PRN (22:14)
--- NOTE | 2021-07-27 22:15 | NUR ---
GPS RN NOTES: RESTORIL 7.5MG ADMINISTERED PO AT 2214 D/O INSOMNIA. WILL CONTINUE TO MONITOR.
[2021-07-28 08:00] VITALS: BP_SYST 133; BP_DIAS 62; BP_DIAS 66
[2021-07-28] MEDS: ENSURE ENLIVE CHOC 237 ML CAN PO SCH ×2 (08:22→16:59)
[2021-07-28] MEDS: ASPIRIN 81 MG TAB.CHEW PO SCH (09:37)
[2021-07-28] MEDS: GABAPENTIN 100 MG CAPSULE PO SCH ×3 (09:37→16:59)
[2021-07-28] MEDS: CYANOCOBALAMIN 500 MCG TABLET PO SCH (09:37)
[2021-07-28] MEDS: CLOTRIMAZOLE 1% 15 GM TUBE TP SCH ×2 (09:53→17:00)
[2021-07-28] MEDS: Z GUARD REMEDY 4 OZ OINT TP SCH (09:54)
[2021-07-28] MEDS: ACETAMINOPHEN 325 MG TABLET PO PRN (15:32)
--- NOTE | 2021-07-28 15:38 | NUR ---
RN-NOTES NOTED PATIENT COMPLAINED OF PAIN ON THE RIGHT SHOULDER. UPON ASSESSMENT WITH RN (TUNDE) ON THE SAID SITE ,NO BRUISES OR SWELLING NOTED. DR. HERNANDEZ MADE AWARE WITH T.O ORDER OF X-RAY ON THE RIGHT SHOULDER STAT.TYLENOL 650MG P.O GIVEN FOR THE PAIN.
[2021-07-28 16:00] VITALS: BP 118/55
[2021-07-28] MEDS: Z GUARD REMEDY 4 OZ OINT TP PRN (17:00)
--- NOTE | 2021-07-28 19:25 | NUR ---
RN-NOTES PATIENT IN THE DAY ROOM UP IN THE HANK CHAIR AWAKE,ALERT WITH CONFUSION. NO COMPLAIN OF ANY PAIN AT THIS TIME. ALL NEEDS ATTENDED AND ANTICIPATED. WILL ENDORSE TO INCOMING NURSE FOR CONTINUITY OF CARE.
--- NOTE | 2021-07-28 19:30 | NUR ---
GPS RN NOTE, RECEIVED PATIENT AWAKE AND IN BED, NO S/S OR COMPLAINTS OF PAIN AT THIS TIME. PATIENT IS DISPLAYING NO S/S OF APPARENT DISTRESS AT THIS TIME. PATIENT BREATHING IS UNLABORED WITH EQUAL RISE AND FALL OF THE CHEST. PATIENT IS ALERT AND ORIENTED X 1 ON ROOM AIR WITH A SPO2 94%. PATIENT IS COMPLIANT WITH MEDICATIONS, CONFUSED, EASILY IRRITABLE, AND UNCOOPERATIVE AT TIMES. PATIENT DENIES SUICIDAL AND HOMICIDAL IDEATIONS AT THIS TIME. PATIENT ASSISTED WITH TURNING AND REPOSITIONING Q2HR AND PRN FOR COMFORT AND CIRCULATION. PATIENT HAS NO NEEDS AT THIS TIME. PATIENT EDUCATED ON THE USE OF THE CALL DIANE. PATIENT BED SIDE RAILS UP X 2 FOR SAFETY. PATIENT BED IS LOCKED, LOW, WITH BED ALARM ON. WILL CONTINUE TO MONITOR THIS PATIENT Q15 MINUTES WITH THE HELP OF STAFF TO MAINTAIN SAFETY.
[2021-07-28 20:00] VITALS: BP 147/55
[2021-07-28] MEDS: ATORVASTATIN 10 MG TABLET PO SCH (22:17)
[2021-07-28] MEDS: risperiDONE-M 0.5 MG TAB.RAPDIS PO SCH (22:17)
[2021-07-28] MEDS: GABAPENTIN 300 MG CAPSULE PO SCH (22:17)
[2021-07-28] MEDS: TEMAZEPAM 7.5 MG CAPSULE PO PRN (22:45)
[2021-07-29] MEDS: LORAZEPAM 0.5 MG TABLET PO PRN (03:54)
--- NOTE | 2021-07-29 03:54 | NUR ---
GPS RN NOTE, PATIENT HAS A COMPLAINT OF FEELING ANXIOUS AND IS REQUESTING ATIVAN AT THIS TIME. PATIENT VITAL SIGNS ARE STABLE. GAVE ATIVAN 0.5MG POQ6HR PRN ORDERED. WILL REASSESS FOR ANXIETY AND I WILL CONTINUE TO MONITOR THIS PATIENT WITH THE HELP STAFF.
[2021-07-29] MEDS: ENSURE ENLIVE CHOC 237 ML CAN PO SCH ×2 (07:55→16:46)
[2021-07-29] MEDS: CLOTRIMAZOLE 1% 15 GM TUBE TP SCH ×2 (07:56→16:47)
[2021-07-29] MEDS: CYANOCOBALAMIN 500 MCG TABLET PO SCH (07:57)
[2021-07-29] MEDS: GABAPENTIN 100 MG CAPSULE PO SCH ×3 (07:57→16:47)
[2021-07-29] MEDS: ASPIRIN 81 MG TAB.CHEW PO SCH (07:57)
[2021-07-29 08:00] VITALS: BP 108/84
[2021-07-29] MEDS: Z GUARD REMEDY 4 OZ OINT TP SCH (09:00)
[2021-07-29 16:00] VITALS: BP 150/58
[2021-07-29 19:49] VITALS: BP 122/61
[2021-07-29] MEDS: risperiDONE-M 0.5 MG TAB.RAPDIS PO SCH (21:11)
[2021-07-29] MEDS: ATORVASTATIN 10 MG TABLET PO SCH (21:12)
[2021-07-29] MEDS: GABAPENTIN 300 MG CAPSULE PO SCH (21:12)
--- NOTE | 2021-07-29 22:46 | NUR ---
Patient restless,uncooperative,refused skin assessment offered x3.
[2021-07-29] MEDS: TEMAZEPAM 7.5 MG CAPSULE PO PRN (23:53)
--- NOTE | 2021-07-29 23:53 | NUR ---
Patient still awake,c/o difficulty falling asleep.Offered and given Restoril 7.5 mg PO as ordered.
[2021-07-30 08:00] VITALS: BP 109/61
[2021-07-30] MEDS: ENSURE ENLIVE CHOC 237 ML CAN PO SCH ×2 (08:00→17:06)
[2021-07-30] MEDS: Z GUARD REMEDY 4 OZ OINT TP SCH (09:00)
[2021-07-30] MEDS: CLOTRIMAZOLE 1% 15 GM TUBE TP SCH ×2 (09:00→17:06)
[2021-07-30] MEDS: CYANOCOBALAMIN 500 MCG TABLET PO SCH (09:59)
[2021-07-30] MEDS: ASPIRIN 81 MG TAB.CHEW PO SCH (09:59)
[2021-07-30] MEDS: GABAPENTIN 100 MG CAPSULE PO SCH ×3 (09:59→17:06)
[2021-07-30 16:00] VITALS: BP 115/72
[2021-07-30] MEDS: LORAZEPAM 0.5 MG TABLET PO PRN (20:14)
[2021-07-30 20:15] VITALS: BP 109/55
--- NOTE | 2021-07-30 20:21 | NUR ---
GPS RN NOTE: ANXIETY PATIENT IS A ANXIOUS AND RESTLESS. PRN ATIVAN 0.5 MG 1 TAB PO ADMINISTERED. WILL CONTINUE TO MONITOR.
[2021-07-30 20:31] VITALS: BP 105/45
[2021-07-30] MEDS: ACETAMINOPHEN 325 MG TABLET PO PRN (21:10)
--- NOTE | 2021-07-30 21:11 | NUR ---
GPS RN NOTE: PAIN PATIENT C/O BACK PAIN PAIN BUT UNABLE TO SCALE DUE TO CONFUSION. PRN TYLENOL 650 MG PO ADMINISTERED. WILL CONTINUE TO MONITOR.
[2021-07-30] MEDS: GABAPENTIN 300 MG CAPSULE PO SCH (21:44)
[2021-07-30] MEDS: ATORVASTATIN 10 MG TABLET PO SCH (21:45)
[2021-07-30] MEDS: TEMAZEPAM 7.5 MG CAPSULE PO PRN (22:28)
--- NOTE | 2021-07-30 22:29 | NUR ---
GPS RN NOTE: INSOMNIA PATIENT IS UNABLE TO SLEEP, RESTLESS. PRN RESTORIL 7.5 MG 1 CAP PO ADMINISTERED. PATIENT HAD SNACK AND TOLERATED WELL. WILL CONTINUE TO MONITOR.
[2021-07-31] MEDS: Z GUARD REMEDY 4 OZ OINT TP PRN (03:40)
--- NOTE | 2021-07-31 06:05 | NUR ---
GPS RN NOTE: COVID ANTIGEN 19 SWAB COLLECTED AND WILL BE SENT TO LAB.
--- NOTE | 2021-07-31 07:20 | NUR ---
COVID 19 ANTIGEN SWAB SENT TO LAB.
[2021-07-31 08:00] VITALS: BP 111/65
[2021-07-31] MEDS: ENSURE ENLIVE CHOC 237 ML CAN PO SCH (08:00)
--- NOTE | 2021-07-31 08:07 | NUR ---
SW Discharge Note: Patient will be discharged to [facility] [address], [place] [address] ([phone]). Please arrange ambulance transportation at 1PM. Spoke with Wendy, Admin Coordinator at the facility who states they are ready to accept the patient today. Patients son Kike ([phone]) is aware and agreeable. Patient is alert and oriented x1, is unable to plan for self-care at this time, however, is willing to accept care at [facility]. Patient denies any suicidal or homicidal ideation. Patient will continue to follow-up with (psychiatrist) Dr. Zacarias [address], [place] [address]; ([phone]) and (Field Account Director) Dr. Turner [address], [place] [address]; ([phone]). Patient presents with euthymic mood and congruent affect.
[2021-07-31] MEDS: CYANOCOBALAMIN 500 MCG TABLET PO SCH (09:54)
[2021-07-31] MEDS: ASPIRIN 81 MG TAB.CHEW PO SCH (09:54)
[2021-07-31] MEDS: GABAPENTIN 100 MG CAPSULE PO SCH ×2 (09:54→13:48)
[2021-07-31] MEDS: CLOTRIMAZOLE 1% 15 GM TUBE TP SCH (09:59)
[2021-07-31] MEDS: Z GUARD REMEDY 4 OZ OINT TP SCH (10:00)
--- NOTE | 2021-07-31 14:45 | NUR ---
Patient discharged to [facility] in stable condition.Compliant with medications ,cooperative with treatment plans Patient denies SI/HI/AVH .Behavior improved ,psychiatric tx plans met ,medical tx plans differed for for continual monitoring, patient refused discharge photo.Educated pt about after care plan (Exit -care)and copy provided Returned personal belongings to patient confused med list given and explained to patient unable to verbalize understanding, report given to Bharti RN in facility .Vs stable ,no c/o pain .Patient seen by and with discharge orders and med list .Patient discharge at 1445 with ambulance.
== END 2021-07-31 14:45 | DRG 885 ==
LOC: GPS 23:12
PROVIDERS: ADMIT Psychiatry & Neurology Psychosomatic Medicine; ATTEND Student in an Organized Health Care Education/Training Program
DX: F25.9 Schizoaffective disorder, unspecified (principal); U07.1 COVID-19; N17.0 Acute kidney failure with tubular necrosis; G93.41 Metabolic encephalopathy; F29 Unspecified psychosis not due to a substance or known physiological condition; F41.9 Anxiety disorder, unspecified; F03.90 Unspecified dementia, unspecified severity, without behavioral disturbance, psychotic disturbance, mood disturbance, and anxiety; I25.10 Atherosclerotic heart disease of native coronary artery without angina pectoris; E78.5 Hyperlipidemia, unspecified; D72.829 Elevated white blood cell count, unspecified; E86.0 Dehydration; R79.89 Other specified abnormal findings of blood chemistry; I10 Essential (primary) hypertension; Z73.6 Limitation of activities due to disability; Z79.899 Other long term (current) drug therapy; Z79.82 Long term (current) use of aspirin; R53.1 Weakness; R27.8 Other lack of coordination; Z91.81 History of falling; Z78.9 Other specified health status; L85.3 Xerosis cutis; F32.A Depression, unspecified; B35.3 Tinea pedis; B35.1 Tinea unguium
CPT/HCPCS: 36415; 73030-TC; 80048-TC; 80053-TC; 80061-TC; 82962-TC; 83735-TC; 85025-TC; 87081-TC; 97116-TC; 97530-TC